=== PATIENT | male | born 1980 | race Caucasian/White ===

== ENCOUNTER 2017-10-10 14:37 | Emergency (ER) | payer OTHER ==
[~2017-10-10] VITALS: Ht 185.4 cm; Wt 127.0 kg
[~2017-10-10 14:37] MED LIST: CYCL10 PO; HYDACE5 PO; MECL25 PO; NAPR500 PO; RXCYCL10 PO; RXHYDACE PO
[2017-10-10] MEDS ORDERED: Veetids 500500 MG PO (16:02)
[2017-10-10] MEDS ORDERED: Zofran Odt4 MG SL (16:07)
== END 2017-10-10 16:15 | disposition home or self-care (01) ==
LOC: ER 14:37
DX: J02.0 Streptococcal pharyngitis (principal)
CPT/HCPCS: 87430; 99283

== ENCOUNTER → 2024-03-10 | Outpatient (CLI) | payer OTHER ==
[~2024-03-10] MED LIST changes: +Veetids 500500 MG PO; +Zofran Odt4 MG SL
[2024-03-10 19:21] LABS: Albumin, Blood 3.9 g/dL (3.4-5.0); Albumin/Globulin Ratio 1.2 (0.8-1.8); Bilirubin, Total 0.3 mg/dL (0.1-1.0); Bun/Creatinine Ratio 17.8 (12.0-20.0); Calcium, Blood 8.4 mg/dL (8.5-10.1); Creatinine, Blood 1.01 mg/dL (0.60-1.20); Globulin, Blood 3.2 g/dL (2.2-4.0); Potassium, Blood 3.8 mmol/L (3.5-5.5); Total Protein, Blood 7.1 g/dL (6.4-8.2)
== END | disposition home or self-care (01) ==
LOC: LAB SHORT 15:58
PROVIDERS: Nurse Practitioner Family
DX: B35.1 Tinea unguium (principal)
CPT/HCPCS: 80053